=== PATIENT | male | born 1985 | race Caucasian/White ===

== ENCOUNTER 2016-12-14 10:23 | Emergency (ER) | payer BC ==
[~2016-12-14] VITALS: Ht 180.3 cm; Wt 96.8 kg
[2016-12-14] MEDS ORDERED: SODIUM CHLORIDE FLUSH 10ML SYR IVF ONE (11:30)
[2016-12-14] MEDS ORDERED: SODIUM CHLORIDE 0.9% 1,000ML IVBOLUS ONE (11:30)
[2016-12-14 11:46] LABS: HEMOGLOBIN 16.4 g/dL (13.7-18.0)
[2016-12-14 11:58] LABS: ASPARTATE AMINO TRANSFERASE 52 U/L (15-37); BLOOD UREA NITROGEN 10 mg/dL (7-18)
[2016-12-14 13:23] VITALS: BP 156/108
== END 2016-12-14 13:26 | disposition home or self-care (01) ==
LOC: ED 10:56
DX: I10 Essential (primary) hypertension (principal); L03.211 Cellulitis of face
CPT/HCPCS: 36415; 71010; 80053; 85025; 93005; 96360; 99285; J7030